=== PATIENT | male | born 1950 | race Caucasian/White ===

== ENCOUNTER 2021-10-13 17:36 | Inpatient (IN) | payer MEDICARE ==
[~2021-10-13] VITALS: Ht 172.7 cm; Wt 95.2 kg
[~2021-10-13 17:36] MED LIST: HEParin (CATH LAB) 1,000 ML IV ONE; LIDOCAINE 1% INJ 20 ML VIAL INJ ONE; NITRO DRIP 25000 MCG/D5W 250 ML IV ONE; NS IV 1000 ML 1,000 ML IV ONE
[2021-10-13] MEDS ORDERED: morphine INJ 4 MG/ML 1 ML (VIAL/SYRINGE) IV PRN (17:45)
[2021-10-13] MEDS ORDERED: ALPRAZolam 0.25 MG (XANAX) TAB PO PRN (17:45)
[2021-10-13] MEDS ORDERED: ANTACID SUSP 30 ML UDC (MYLANTA) PO PRN (17:45)
[2021-10-13] MEDS ORDERED: diphenhydrAMINE 25 MG TAB (BENADRYL) PO PRN (17:45)
[2021-10-13] MEDS ORDERED: NS IV 1000 ML 1,000 ML IV SCH (17:45)
[2021-10-13] MEDS ORDERED: diphenhydrAMINE 50 MG/ML INJ (BENADRYL) IVP PRN (17:45)
[2021-10-13] MEDS ORDERED: LACTULOSE SYRUP 10GM/15ML (ENULOSE) 30ML UDC PO PRN (17:45)
[2021-10-13] MEDS ORDERED: ACETAMINOPHEN 325 MG TABLET PO PRN ×2 (17:45→19:00)
[2021-10-13] MEDS ORDERED: polyethylene glycoL POWDER 17 GM (MIRALAX) PACK PO PRN (17:45)
[2021-10-13] MEDS ORDERED: CALCIUM CARBONATE 500 MG (TUMS) TAB.CHEW PO PRN (17:45)
[2021-10-13] MEDS ORDERED: BISACODYL 10 MG SUPP (DULCOLAX) PR PRN (17:45)
[2021-10-13] MEDS ORDERED: ONDANSETRON 4 MG (ZOFRAN) ORAL DISSOLVE TAB PO PRN (17:45)
[2021-10-13] MEDS ORDERED: ONDANSETRON 4 MG/2 ML (SDV) Z0FRAN IV PRN (17:45)
[2021-10-13] MEDS ORDERED: NALOXONE 0.4 MG/ML 1 ML (NARCAN) VIAL IV PRN (17:45)
[2021-10-13] MEDS ORDERED: MILK OF MAGNESIA 400 MG/5 ML 30 ML UDC PO PRN (17:45)
[2021-10-13] MEDS ORDERED: MELATONIN 3 MG TABLET PO PRN (17:45)
[2021-10-13] MEDS ORDERED: EPTIFIBATIDE BOLUS 20 ML IV ONE (17:52)
[2021-10-13] MEDS ORDERED: HEParin 1000 UNIT/ML (10ML VIAL) FOR BOLUS ONE (17:52)
[2021-10-13] MEDS ORDERED: fentaNYL INJ 100 MCG/2 ML AMP ONE (17:52)
[2021-10-13] MEDS ORDERED: MIDAZOLAM 5 MG/5 ML (VERSED) VIAL ONE (17:52)
[2021-10-13] MEDS ORDERED: EPTIFIBATIDE DRIP 100 ML IV ONE (18:16)
[2021-10-13] MEDS ORDERED: CLOPIDOGREL 300 MG (PLAVIX) TABLET PO ONE (18:35)
--- NOTE | 2021-10-13 18:47 | Cardiology History & Physical ---
HPI-Cardiology Cardiology H&P Date of Admission 10/13/21 Primary Care Physician Attending Physician Aruna Purcell MD, MA FACP [facility] CCDS Consulting Physician JOSE CC: Chest pain HPI 71 yo man with a week of waxing and waning chest pain: midsternal, pressure- like, mild to severe, sometimes associated with diaphoresis, some radiation to shoulders, worse with exertion, much worse today. Has had exertional shortness of breath. No swelling. No n/v/d. No palp or syncope Review of Systems-Cardiology Review of Systems Constitutional: malaise; No weight loss Eyes: No vision change Ears/Nose/Throat: No ear discharge, No nasal drainage, No recent hearing loss Respiratory: As described under HPI Cardiovascular: no symptoms reported Gastrointestinal: As described under HPI Genitourinary: No dysuria, No hematuria Musculoskeletal: No back pain, No joint pain Skin: No rash, No ulcerations Psychiatric/Neurological: No seizure, No focal weakness, No syncope Hematologic: No bleeding abnormalities QEP-Mumolh-Daqpvh Hx Patient Social History Smoking Status: Former Smoker Past Medical History PMH As described under Assessment. Family Medical History Family Medical History: Does not report fam h/o early CADD Allergies and Home Medications Allergies Coded Allergies: No Known Drug Allergies (Unverified , 10/13/21) Patient Home Medication List Home Medication List Reviewed: Yes Physical Exam-Cardiology Physical Exam Vital Signs/I&O Capillary Refill : Constitutional: AAO x 3, well-developed, well-nourished HEENT: EOMI, hearing is well preserved Neck: carotid pulses are 2 + bilaterally, with good upstrokes Respiratory: No accessory muscle use; other (fair to good air entry) Cardiovascular: regular rate-rhythm, S1 and S2, systolic murmur (2-3/6 MSM at card base) Gastrointestinal: No tender; soft; No guarding, No rebound; audible bowel sounds Extremities: No clubbing, No cyanosis, No significant edema Skin: No rash on exposed areas, No ulcerations on exposed areas Data Review Labs H/H 14.9/43.9 Plt 215k Na 138 K 4.1 Bun/Cr: 12/1.18 Trop 1.452 A/P-Cardiology Assessment/Admission Diagnosis Ac ant wall STEMI - Cath 10/13/21: 99% mid LAD -> 0% residual after Xience Spring 2.25x18 mm stent; mild to mod, diffuse plaques in other cors; LVEDP 17; 15 mmHg pressure gradient on pull back across aortic valve; LVEF 45-50%; mild anterior hypo Murmur of aortic sclerosis/stenosis H/o hypertension H/o tobacco use, quit several years ago Admission Status: Inpatient Order (span 2 midnights) Reason for Inpatient Admission: Ac STEMI Discussion and Recomendations * DAPT * BB * ARB * Statin * Monitor labs * Risk factor mod advised ARUNA PURCELL MD FACP FAC CCDS Oct 13, 2021 18:47
[2021-10-13] MEDS ORDERED: TEMAZEPAM 7.5 MG CAP (RESTORIL) PO PRN (19:00)
[2021-10-13] MEDS ORDERED: PATIENT MAY USE OWN MEDS, ALL PO SCH (19:00)
--- NOTE | 2021-10-13 19:48 | CARDIAC CATHETERIZATION ---
DATE OF SERVICE: 10/13/2021 CARDIAC CATHETERIZATION AND CORONARY INTERVENTION REPORT The patient is a 71-year-old gentleman who presented to the [facility] with chest pain that has been going on for a week. It has waxed and waned. It has not resolved completely. Today, the chest pain was much worse than yesterday and he decided to go to the emergency room. He was found to have ST elevation in the anterior leads. He was treated with beta blockers, aspirin, clopidogrel and subcutaneous enoxaparin. Chest discomfort continued. He was sent to this hospital for cardiac catheterization and coronary intervention. He provided informed consent. DESCRIPTION OF PROCEDURE: He was brought to the cardiac catheterization laboratory. The right groin was prepared and draped in the usual sterile fashion. Lidocaine 1% was used for local anesthesia. Modified Seldinger technique was used to advance a 6-Slovenian sheath in the right femoral artery. A 6-Slovenian JL4 guide catheter was used to engage the left coronary artery and to carry out diagnostic angiography. Subsequently, percutaneous intervention was carried out in the left anterior descending, and it is described below. This was followed by selective angiography of the right coronary artery using 6-Slovenian JR4 catheter and left heart catheterization with a 6-Slovenian pigtail catheter and left ventricular angiography with a 6-Slovenian pigtail catheter. The catheter was then removed, and then angiography of the right femoral artery was carried out through the sheath. Mynx was used to achieve hemostasis. PERCUTANEOUS INTERVENTION OF THE LEFT ANTERIOR DESCENDING: The left anterior descending artery was exhibiting 99% to 100% stenosis in its mid portion. Distal flow was RULA 1. We advanced a ChoICE floppy wire across the lesion and the tip was placed in the distal vessel. We carried out balloon angioplasty with a 2.0 x 20 mm balloon. This reduced the stenosis to approximately 60% and restored normal antegrade flow. The balloon was then removed, and we stented the lesion with a Xience Spring 2.25 x 18 mm stent. This was deployed at 16 atmospheres achieving a final stent lumen size of approximately 2.7 mm. The patient tolerated the procedure well. The patient received a double bolus of Integrilin during the procedure and Integrilin infusion was continued throughout. He had received therapeutic dose of enoxaparin subcutaneously in the emergency room prior to transfer. HEMODYNAMICS: Left ventricular end-diastolic pressure following coronary angiography was 17 mmHg. There was approximately 15 mmHg gradient on pullback across the aortic valve. LEFT VENTRICULAR ANGIOGRAPHY: Left ventricular angiography was carried out in the right anterior oblique projection. There is mild anteroapical hypokinesis. Left ventricular ejection fraction approximately 45% to 50%. CORONARY ANGIOGRAPHY: Left main coronary artery is free of significant disease. Left anterior descending artery has 99% mid vessel stenosis that was successfully stented with Xience Spring 2.25 x 18 mm stent. Left circumflex artery and a diagonal branch of the left anterior descending have mild plaque. Right coronary artery is large and dominant. It has diffuse moderate disease. CONCLUSIONS: 1. Coronary artery disease primarily consisting of 99% mid vessel stenosis of the left anterior descending to which successful stenting was carried out with Xience Spring 2.25 x 18 mm stent that was deployed at 16 atmospheres. The rest of the coronary vessels have diffuse mild to moderate disease. 2. Elevated left ventricular end-diastolic pressure (17 mmHg). 3. A 15 mmHg pressure gradient on pullback across the aortic valve. 4. Mild hypokinesis of the anteroapical wall with left ventricular ejection fraction of approximately 45% to 50%. DISCUSSION AND RECOMMENDATIONS: He is being hospitalized. Treatment is with dual antiplatelet regimen. Statin and a beta-juan ramon therapy is being provided. TAIWO inhibitors or angiotensin receptor blockers will be given if tolerated by blood pressure. Statins are being introduced. He has been advised to continue to refrain from tobacco use. Job ID: [id number] DocumentID: [id number] Dictated Date: 10/13/2021 18:40:47 [employer] Specialist Date: 10/13/2021 19:47:58 Dictated By: MAICOL MADRID MD, MA, FACP, FACC,
--- NOTE | 2021-10-13 19:51 | Consultation ---
HPI History of Present Illness: HPI/Chief Complaint Chief complaint: STEMI transfer from [facility] ER History of present illness: This is a 71-year-old white male clinic patient of Abby Cordon who has a history of SVT but lost to follow-up for cardiology evaluation who presented to the ER with worsening chest pain for the last 1 week and patient was found to have ST elevation on EKG and elevated troponin of 1.4 [facility] ER along with a new cardiac murmur so due to the fact of hospital diversion status I was able to move around ICU patients in order to transfer him over to cardiac Planner per Dr. Purcell to perform cardiac ca theterization in order to prevent catastrophic loss of myocardium. He has a previous smoker quit 10 years ago. His only home medication was losartan 100 mg daily. His girlfriend of 11 years is at the bedside. Source: patient Exam Limitations: no limitations Date Seen 10/13/21 Attending Physician Deepali Abdi DO PCP Referring Physician Date of Admission Oct 13, 2021 at 18:00 Home Medications & Allergies Home Medications Reviewed patient Home Medication Reconciliation performed by pharmacy medication reconciliations live truck technician and/or nursing. Patients Allergies have been reviewed. Allergies Allergies Coded Allergies No Known Drug Allergies (Unverified10/13/21) Past Sofpbto-Rvrolo-Wxrsrv Hx Past Med/Social Hx: Reviewed Nursing Past Med/Soc Hx, Reviewed and Corrections made Patient Social History Marrital Status: cohabiting Employed/Student: retired Alcohol Use: Denies Use Smoking Status: Former Smoker Past Medical History Cardiac: Hypertension Review of Systems Constitutional: see HPI, malaise, weakness EENTM: no symptoms reported Respiratory: dyspnea on exertion Cardiovascular: chest pain Gastrointestinal: no symptoms reported Genitourinary: no symptoms reported Musculoskeletal: no symptoms reported Skin: no symptoms reported Psychiatric/Neurological: No Symptoms Reported All Other Systems Reviewed Negative Unless Noted: Yes Physical Exam Physical Exam Vital Signs Vital Signs - First Documented 10/13/21 10/13/21 10/13/21 19:04 19:15 20:00 Temp 36.0 Pulse 63 Resp 29 B/P (MAP) 125/85 Pulse Ox 95 O2 Delivery Room Air Capillary Refill : Height, Weight, BMI Height: '" Weight: lbs. oz. kg; BMI Method: General Appearance: WD/WN, Anxious, Chronically ill, Mild Distress Eyes: Bilateral Eye Normal Inspection, Bilateral Eye PERRL HEENT: PERRL/EOMI, Normal ENT Inspection, Pharynx Normal Neck: Full Range of Motion, Normal Inspection, Non Tender, Supple, Carotid Bruit Respiratory: Chest Non Tender, Lungs Clear, Normal Breath Sounds, No Accessory Muscle Use, No Respiratory Distress Cardiovascular: Regular Rate, Rhythm, No Edema, No Gallop, No JVD, Normal Peripheral Pulses, Systolic Murmur Gastrointestinal: Normal Bowel Sounds, No Organomegaly, No Pulsatile Mass, Non Tender, Soft Back: Normal Inspection, No CVA Tenderness, No Vertebral Tenderness Extremity: Normal Capillary Refill, Normal Inspection, Normal Range of Motion, Non Tender, No Calf Tenderness, No Pedal Edema Neurologic/Psychiatric: Alert, Oriented x3, No Motor/Sensory Deficits, Normal Mood/Affect Skin: Normal Color, Warm/Dry Lymphatic: No Adenopathy Results Results/Procedures Labs Laboratory Tests 10/14/21 04:20 Patient resulted labs reviewed. Assessment/Plan Assessment and Plan Assess & Plan/Chief Complaint Assessment: STEMI in need to have emergent cardiac catheterization Hypertension History of SVT lost to follow-up for cardiology evaluation Cardiac murmur Former smoker quit 10 years ago Plan: Cardiac catheterization Transfer to [facility] Diagnosis/Problems Diagnosis/Problems (1) Acute ST elevation myocardial infarction (STEMI) DEEPALI ABDI DO Oct 13, 2021 19:51
--- NOTE | 2021-10-13 19:52 | Tele-ICU Consult ---
History of Present Illness History of Present Illness Date Seen by Provider: Oct 13, 2021 Time Seen by Provider: 19:50 History of Present Illness 71 yo M with SOB, CP, had ant wall DC, stented in mid LAD, started on DPT PMH aortic stenosis?, HTN Allergies and Home Medications Allergies Coded Allergies: No Known Drug Allergies (Unverified , 10/13/21) Past Medical/Social/Family Hx Patient Social History Smoking Status: Former Smoker Review of Systems Constitutional: see HPI EENTM: see HPI Respiratory: see HPI Cardiovascular: see HPI Gastrointestinal: see HPI Genitourinary: see HPI Musculoskeletal: see HPI Skin: see HPI Psychiatric/Neurological: See HPI Focused Exam Height, Weight, BMI Height: '" Weight: lbs. oz. kg; BMI Method: Exam Exam Patient acknowledged, consented, and participated in this virtual visit which was conducted using real time audio/video Height & Weight Height: '" Weight: lbs. oz. kg; BMI Method: General Appearance: No Apparent Distress Respiratory: Lungs Clear Cardiovascular: Regular Rate, Rhythm Gastrointestinal: normal bowel sounds, non tender Extremity: No Pedal Edema, Pedal Edema Assessment/Plan Assessment/Plan STEMI continue BB, TAIWO, statin, DPT Critical Care: Critically Ill Patient CAMILA ELLIS MD Oct 13, 2021 19:52
[2021-10-13] MEDS ORDERED: RT-ALBUTEROL SULF 2.5 MG/3 ML PRE-MIX VIAL INH PRN (20:30)
[2021-10-13] MEDS: SENNOSIDES 8.6 MG (SENOKOT) TAB PO SCH (21:56)
[2021-10-13] MEDS: inSUlin ASPART (NovoLOG) 1 UNIT/0.01 ML (CHARGE PER UNIT) SC SCH (21:56)
[2021-10-13] MEDS: DOCUSATE SODIUM 100 MG (COLACE) CAP PO SCH (21:56)
[2021-10-13] MEDS: meTOprolol TARTRATE 25 MG (LOPRESSOR) TABLET PO SCH (22:02)
[2021-10-13] MEDS: NS IV 1000 ML 1,000 ML IV SCH (22:03)
[2021-10-14 04:43] LABS: BASOPHILS # (AUTO) 0.1 10^3/uL (0.0-0.1); BASOPHILS % (AUTO) 1 % (0-10); EOSINOPHILS # (AUTO) 0.1 10^3/uL (0.0-0.3); EOSINOPHILS % (AUTO) 1 % (0-10); HEMATOCRIT 40 % (40-54); HEMOGLOBIN 13.6 g/dL (13.3-17.7); LYMPHOCYTES # (AUTO) 2.6 10^3/uL (1.0-4.0); LYMPHOCYTES % (AUTO) 23 % (12-44); MEAN CORPUSCULAR HEMOGLOBIN 30 pg (25-34); MEAN CORPUSCULAR HGB CONC 34 g/dL (32-36); MEAN CORPUSCULAR VOLUME 90 fL (80-99); MEAN PLATELET VOLUME 11.1 fL (9.0-12.2); MONOCYTES # (AUTO) 0.9 10^3/uL (0.0-1.0); MONOCYTES % (AUTO) 8 % (0-12); NEUTROPHILS # (AUTO) 7.5 10^3/uL (1.8-7.8); NEUTROPHILS % (AUTO) 67 % (42-75); PLATELET COUNT 209 10^3/uL (130-400); WHITE BLOOD COUNT 11.2 10^3/uL (4.3-11.0)
[2021-10-14 05:01] LABS: ALBUMIN 3.8 GM/DL (3.2-4.5); POTASSIUM 4.2 MMOL/L (3.6-5.0)
[2021-10-14 05:02] LABS: CALCIUM 8.6 MG/DL (8.5-10.1)
[2021-10-14 05:04] LABS: TOTAL PROTEIN 6.5 GM/DL (6.4-8.2)
[2021-10-14 05:05] LABS: BILIRUBIN,TOTAL 0.5 MG/DL (0.1-1.0)
[2021-10-14 05:07] LABS: CREATININE SERUM 1.1 MG/DL (0.60-1.30); PHOSPHORUS 3.4 MG/DL (2.3-4.7)
[2021-10-14 05:10] LABS: MAGNESIUM 2.4 MG/DL (1.6-2.4)
[2021-10-14] MEDS: inSUlin ASPART (NovoLOG) 1 UNIT/0.01 ML (CHARGE PER UNIT) SC SCH (05:52)
[2021-10-14] MEDS ORDERED: MAGNESIUM 1 GM/100 ML IVPB 100 ML IV SCH (06:00)
[2021-10-14] MEDS ORDERED: POTASSIUM CL 10MEQ/50ML IVPB 50 ML IV SCH (06:00)
[2021-10-14] MEDS ORDERED: KCL 20 MEQ TAB (K-DUR) PO SCH (06:00)
[2021-10-14] MEDS ORDERED: FLU QUAD HIGH DOSE 240 MCG/0.7 ML 2021-22 (FLUZONE) IM ONE (07:00)
--- NOTE | 2021-10-14 08:10 | Progress Note - Cardiology ---
Cardiology SOAP Progress Note Objective: I&O/Vital Signs 10/13/21 10/13/21 10/14/21 10/14/21 22:00 23:00 00:00 00:00 Pulse 56 60 58 Resp 21 22 18 B/P (MAP) 124/79 127/81 128/77 Pulse Ox 93 94 95 94 O2 Delivery Room Air Room Air Room Air Room Air 10/14/21 10/14/21 10/14/21 10/14/21 01:00 01:00 02:00 03:00 Pulse 58 61 58 55 Resp 20 19 20 B/P (MAP) 122/90 114/80 125/83 Pulse Ox 94 96 95 O2 Delivery Room Air Room Air Room Air 10/14/21 10/14/21 10/14/21 10/14/21 04:00 04:00 05:00 06:00 Pulse 54 62 60 Resp 20 21 18 B/P (MAP) 126/68 122/80 121/75 Pulse Ox 96 94 94 95 O2 Delivery Room Air Room Air Room Air Room Air 10/14/21 10/14/21 10/14/21 10/14/21 07:00 07:00 07:00 08:00 Pulse 64 72 59 75 Resp 13 15 B/P (MAP) 124/80 124/79 Pulse Ox 96 97 O2 Delivery Room Air Room Air 10/14/21 08:26 Temp 37.2 10/13/21 23:59 Intake Total 300 ml Balance 300 ml Constitutional: AAO x 3, well-developed, well-nourished Respiratory: No accessory muscle use; other (fair to good air entry) Cardiovascular: regular rate-rhythm, S1 and S2, systolic murmur (2-3/6 MSM at card base) Gastrointestional: No tender; soft; No guarding, No rebound; audible bowel sounds Extremities: No clubbing, No cyanosis, No significant edema Skin: No rash on exposed areas, No ulcerations on exposed areas Results/Procedures: Labs Laboratory Tests 10/13/21 20:16: Glucometer 116H 10/14/21 04:20: White Blood Count 11.2H, Red Blood Count 4.51, Hemoglobin 13.6, Hematocrit 40, Mean Corpuscular Volume 90, Mean Corpuscular Hemoglobin 30, Mean Corpuscular Hemoglobin Concent 34, Red Cell Distribution Width 12.9, Platelet Count 209, Mean Platelet Volume 11.1, Immature Granulocyte % (Auto) 0, Neutrophils (%) (Auto) 67, Lymphocytes (%) (Auto) 23, Monocytes (%) (Auto) 8, Eosinophils (%) (Auto) 1, Basophils (%) (Auto) 1, Neutrophils # (Auto) 7.5, Lymphocytes # (Auto) 2.6, Monocytes # (Auto) 0.9, Eosinophils # (Auto) 0.1, Basophils # (Auto) 0.1, Immature Granulocyte # (Auto) 0.0, Sodium Level 135, Potassium Level 4.2, Chloride Level 104, Carbon Dioxide Level 20L, Anion Gap 11, Blood Urea Nitrogen 13, Creatinine 1.10, Estimat Glomerular Filtration Rate 72, BUN/Creatinine Ratio 12, Glucose Level 137H, Calcium Level 8.6, Corrected Calcium 8.8, Phosphorus Level 3.4, Magnesium Level 2.4, Total Bilirubin 0.5, Aspartate Amino Transf (AST/SGOT) 146H, Alanine Aminotransferase (ALT/SGPT) 43, Alkaline Phosphatase 54, Total Protein 6.5, Albumin 3.8, Triglycerides Level 187H, Cholesterol Level 157, LDL Cholesterol Direct 111, VLDL Cholesterol 37, HDL Cholesterol 31L A/P: Assessment: Ac ant wall STEMI - Cath 10/13/21: 99% mid LAD -> 0% residual after Xience Spring 2.25x18 mm stent; mild to mod, diffuse plaques in other cors; LVEDP 17; 15 mmHg pressure gradient on pull back across aortic valve; LVEF 45-50%; mild anterior hypo Murmur of aortic sclerosis/stenosis H/o hypertension H/o tobacco use, quit several years ago Plan: * DAPT * BB * ARB * Statin * Monitor labs * Risk factor mod advised TAYLOR AGEE Oct 14, 2021 08:10
[2021-10-14] MEDS ORDERED: ENOXAPARIN 100 MG/1 ML (LOVENOX) SYR SC SCH (09:00)
[2021-10-14] MEDS: ASPIRIN E.C. 81 MG (ECOTRIN) TAB PO SCH (09:00)
[2021-10-14] MEDS: meTOprolol TARTRATE 25 MG (LOPRESSOR) TABLET PO SCH ×2 (09:00→20:51)
[2021-10-14] MEDS: DOCUSATE SODIUM 100 MG (COLACE) CAP PO SCH ×2 (09:00→20:50)
[2021-10-14] MEDS ORDERED: ASPIRIN 81 MG CHEW (CHILDREN'S ASA) PO SCH (09:00)
[2021-10-14] MEDS: CLOPIDOGREL 75 MG (PLAVIX) TABLET PO SCH (09:00)
[2021-10-14] MEDS ORDERED: CLOPIDOGREL 75 MG (PLAVIX) TABLET PO SCH (09:00)
[2021-10-14] MEDS: LOSARTAN 25 MG (COZAAR) TAB PO SCH (09:00)
--- NOTE | 2021-10-14 09:27 | Progress Note - Cardiology ---
Cardiology SOAP Progress Note Objective: I&O/Vital Signs 10/15/21 10/15/21 10/15/21 10/15/21 00:11 01:00 04:01 07:00 Temp 36.2 36.3 Pulse 68 53 70 55 Resp 18 20 B/P (MAP) 133/84 138/85 Pulse Ox 95 98 O2 Delivery Room Air Room Air 10/15/21 10/15/21 10/15/21 07:36 08:00 08:00 Temp 35.9 Pulse 82 Resp 20 B/P (MAP) 126/79 Pulse Ox 94 97 95 O2 Delivery Room Air Room Air Room Air 10/15/21 00:00 Intake Total 1100 ml Output Total 525 ml Balance 575 ml Side: right Condition: DP/PT pulses palpable, extremity w/d/p Bruising: mild bruising Constitutional: AAO x 3, well-developed, well-nourished Respiratory: No accessory muscle use; other (fair to good air entry) Cardiovascular: regular rate-rhythm, S1 and S2, systolic murmur (2-3/6 MSM at card base) Gastrointestional: No tender; soft; No guarding, No rebound; audible bowel sounds Extremities: No clubbing, No cyanosis, No significant edema Skin: No rash on exposed areas, No ulcerations on exposed areas Results/Procedures: Labs Laboratory Tests 10/14/21 15:45: Glucometer 89 10/15/21 05:40: White Blood Count 11.6H, Red Blood Count 5.13, Hemoglobin 15.3, Hematocrit 46, Mean Corpuscular Volume 89, Mean Corpuscular Hemoglobin 30, Mean Corpuscular Hemoglobin Concent 34, Red Cell Distribution Width 13.0, Platelet Count 226, Mean Platelet Volume 11.3, Immature Granulocyte % (Auto) 0, Neutrophils (%) (Auto) 64, Lymphocytes (%) (Auto) 23, Monocytes (%) (Auto) 11, Eosinophils (%) (Auto) 2, Basophils (%) (Auto) 1, Neutrophils # (Auto) 7.4, Lymphocytes # (Auto) 2.7, Monocytes # (Auto) 1.3H, Eosinophils # (Auto) 0.2, Basophils # (Auto) 0.1, Immature Granulocyte # (Auto) 0.0, Sodium Level 137, Potassium Level 4.1, Chloride Level 103, Carbon Dioxide Level 19L, Anion Gap 15H, Blood Urea Nitrogen 15, Creatinine 1.02, Estimat Glomerular Filtration Rate 79, BUN/Creatinine Ratio 15, Glucose Level 90, Calcium Level 9.7, Corrected Calcium 9.4, Total Bilirubin 0.9, Aspartate Amino Transf (AST/SGOT) 72H, Alanine Aminotransferase (ALT/SGPT) 40, Alkaline Phosphatase 57, Total Protein 8.0, Albumin 4.4 A/P: Assessment: Ac ant wall STEMI - Cath 10/13/21: 99% mid LAD -> 0% residual after Xience Spring 2.25x18 mm stent; mild to mod, diffuse plaques in other cors; LVEDP 17; 15 mmHg pressure gradient on pull back across aortic valve; LVEF 45-50%; mild anterior hypo Murmur of aortic sclerosis/stenosis H/o hypertension H/o tobacco use, quit several years ago Plan: * Continue DAPT, BB, ARB, Statin * Increase ambulation * Monitor labs * Risk factor mod advised TAYLOR AGEE Oct 14, 2021 09:27
[2021-10-14] MEDS: ENOXAPARIN 40 MG/0.4 ML (LOVENOX) SYR SC SCH (09:30)
[2021-10-14] MEDS: NS IV 1000 ML 1,000 ML IV SCH (10:02)
[2021-10-14] MEDS: SENNOSIDES 8.6 MG (SENOKOT) TAB PO SCH ×2 (10:03→20:50)
[2021-10-14] MEDS ORDERED: ASPI-1238 PO (10:12)
[2021-10-14] MEDS ORDERED: LOSA100T57 PO (10:12)
[2021-10-14] MEDS ORDERED: IBUP-2473 PO (10:12)
[2021-10-14] MEDS ORDERED: OMEP20TA33 PO (10:12)
[2021-10-14] MEDS ORDERED: ASCO-262 PO (10:12)
[2021-10-14] MEDS ORDERED: FISH1CAP15 PO (10:12)
--- NOTE | 2021-10-14 12:07 | Progress Note - Cardiology ---
Cardiology SOAP Progress Note Subjective: No leg or groin discomfort No cp or palp or syncope or shortness of breath No n/v/d Objective: I&O/Vital Signs 10/14/21 10/14/21 10/14/21 10/14/21 01:00 01:00 02:00 03:00 Pulse 58 61 58 55 Resp 20 19 20 B/P (MAP) 122/90 114/80 125/83 Pulse Ox 94 96 95 O2 Delivery Room Air Room Air Room Air 10/14/21 10/14/21 10/14/21 10/14/21 04:00 04:00 05:00 06:00 Pulse 54 62 60 Resp 20 21 18 B/P (MAP) 126/68 122/80 121/75 Pulse Ox 96 94 94 95 O2 Delivery Room Air Room Air Room Air Room Air 10/14/21 10/14/21 10/14/21 10/14/21 07:00 07:00 07:00 08:00 Pulse 64 72 59 Resp 13 B/P (MAP) 124/80 Pulse Ox 96 95 O2 Delivery Room Air Room Air 10/14/21 10/14/21 10/14/21 08:00 08:26 09:00 Temp 37.2 Pulse 75 74 Resp 15 18 B/P (MAP) 124/79 135/42 Pulse Ox 97 96 O2 Delivery Room Air Room Air 10/14/21 00:00 Intake Total 300 ml Balance 300 ml Side: right Condition: DP/PT pulses palpable, extremity w/d/p Bruising: mild bruising Constitutional: AAO x 3, well-developed, well-nourished Respiratory: No accessory muscle use; other (fair to good air entry) Cardiovascular: regular rate-rhythm, S1 and S2, systolic murmur (2-3/6 MSM at card base) Gastrointestional: No tender; soft; No guarding, No rebound; audible bowel sounds Extremities: No clubbing, No cyanosis, No significant edema Skin: No rash on exposed areas, No ulcerations on exposed areas Results/Procedures: Labs Laboratory Tests 10/13/21 20:16: Glucometer 116H 10/14/21 04:20: White Blood Count 11.2H, Red Blood Count 4.51, Hemoglobin 13.6, Hematocrit 40, Mean Corpuscular Volume 90, Mean Corpuscular Hemoglobin 30, Mean Corpuscular Hemoglobin Concent 34, Red Cell Distribution Width 12.9, Platelet Count 209, Mean Platelet Volume 11.1, Immature Granulocyte % (Auto) 0, Neutrophils (%) (Auto) 67, Lymphocytes (%) (Auto) 23, Monocytes (%) (Auto) 8, Eosinophils (%) (Auto) 1, Basophils (%) (Auto) 1, Neutrophils # (Auto) 7.5, Lymphocytes # (Auto) 2.6, Monocytes # (Auto) 0.9, Eosinophils # (Auto) 0.1, Basophils # (Auto) 0.1, Immature Granulocyte # (Auto) 0.0, Sodium Level 135, Potassium Level 4.2, Chloride Level 104, Carbon Dioxide Level 20L, Anion Gap 11, Blood Urea Nitrogen 13, Creatinine 1.10, Estimat Glomerular Filtration Rate 72, BUN/Creatinine Ratio 12, Glucose Level 137H, Calcium Level 8.6, Corrected Calcium 8.8, Phosphorus Level 3.4, Magnesium Level 2.4, Total Bilirubin 0.5, Aspartate Amino Transf (AST/SGOT) 146H, Alanine Aminotransferase (ALT/SGPT) 43, Alkaline Phosphatase 54, Total Protein 6.5, Albumin 3.8, Triglycerides Level 187H, Cholesterol Level 157, LDL Cholesterol Direct 111, VLDL Cholesterol 37, HDL Cholesterol 31L 10/14/21 10:47: Glucometer 102 Laboratory Tests 10/14/21 04:20 A/P: Assessment: Ac ant wall STEMI - Cath 10/13/21: 99% mid LAD -> 0% residual after Xience Spring 2.25x18 mm stent; mild to mod, diffuse plaques in other cors; LVEDP 17; 15 mmHg pressure gradient on pull back across aortic valve; LVEF 45-50%; mild anterior hypo Murmur of aortic sclerosis/stenosis H/o hypertension H/o tobacco use, quit several years ago Plan: * Continue DAPT, BB, ARB, Statin * Increase ambulation * Monitor labs * Risk factor mod advised MAICOL MADRID MD FACP FAC CCDS Oct 14, 2021 12:07
--- NOTE | 2021-10-14 12:32 | Progress Note ---
CARMINA UMANZOR 10/14/21 1231: Subjective Date Seen by a Provider: Oct 14, 2021 Time Seen by a Provider: 09:45 Subjective/Events-last exam Farshad is a 71yo M with a past medical history of SVT, bladder, cancer, hypertension. He came to [place] ER yesterday for worsening chest pain that was aggravated by activity. He had ST elevations, an elevated troponin, and new heart murmur. He was transferred to [facility] [address] and had a heart catheterization done and a stent placed in LAD. He then was transferred to ICU to be monitored. Patient was awake and watching television when he was interviewed. Patient reports feeling fine. His only concern is his back is sore which he says is normal for him. Has has been ambulating to go to the bathroom and had breakfast this morning. Patient states he would like to leave the hospital today if possible. Review of Systems General: No Chills, No Fatigue HEENT: No Head Aches Pulmonary: No Dyspnea, No Cough Cardiovascular: No: Chest Pain, Palpitations Gastrointestinal: No: Nausea, Vomiting, Abdominal Pain, Diarrhea, Constipation Genitourinary: No Dysuria, No Incontinence Musculoskeletal: back pain (Back is sore) Neurological: No: Weakness, Change in speech, Confusion Objective Exam Last Set of Vital Signs Vital Signs Date Time Temp Pulse Resp B/P (MAP) Pulse Ox O2 Delivery O2 Flow Rate FiO2 10/14/21 09:00 74 18 135/42 96 Room Air 10/14/21 08:26 37.2 Capillary Refill : Less Than 3 Seconds I&O Intake and Output 10/14/21 00:00 Intake Total 300 ml Balance 300 ml Intake Oral 300 ml Daily Weight Change No General: Alert, Oriented X3, Cooperative HEENT: Atraumatic Neck: Supple Lungs: Clear to Auscultation, Normal Air Movement Heart: Other (Systolic rumble heard) Abdomen: Normal Bowel Sounds Extremities: No Clubbing, No Cyanosis, No Edema Skin: No Rashes Neuro: Normal Speech, Normal Tone Results Lab Laboratory Tests 10/13/21 20:16: Glucometer 116H 10/14/21 04:20: White Blood Count 11.2H, Red Blood Count 4.51, Hemoglobin 13.6, Hematocrit 40, Mean Corpuscular Volume 90, Mean Corpuscular Hemoglobin 30, Mean Corpuscular Hemoglobin Concent 34, Red Cell Distribution Width 12.9, Platelet Count 209, Mean Platelet Volume 11.1, Immature Granulocyte % (Auto) 0, Neutrophils (%) (Auto) 67, Lymphocytes (%) (Auto) 23, Monocytes (%) (Auto) 8, Eosinophils (%) (Auto) 1, Basophils (%) (Auto) 1, Neutrophils # (Auto) 7.5, Lymphocytes # (Auto) 2.6, Monocytes # (Auto) 0.9, Eosinophils # (Auto) 0.1, Basophils # (Auto) 0.1, Immature Granulocyte # (Auto) 0.0, Sodium Level 135, Potassium Level 4.2, Chloride Level 104, Carbon Dioxide Level 20L, Anion Gap 11, Blood Urea Nitrogen 13, Creatinine 1.10, Estimat Glomerular Filtration Rate 72, BUN/Creatinine Ratio 12, Glucose Level 137H, Calcium Level 8.6, Corrected Calcium 8.8, Phosphorus Level 3.4, Magnesium Level 2.4, Total Bilirubin 0.5, Aspartate Amino Transf (AST/SGOT) 146H, Alanine Aminotransferase (ALT/SGPT) 43, Alkaline Phosphatase 54, Total Protein 6.5, Albumin 3.8, Triglycerides Level 187H, Cholesterol Level 157, LDL Cholesterol Direct 111, VLDL Cholesterol 37, HDL Cholesterol 31L 10/14/21 10:47: Glucometer 102 Assessment/Plan Assessment/Plan Assess & Plan/Chief Complaint 1) STEMI Started dual antiplatelet therapy with Clopidogrel and Aspirin Started Metoprolol Started Atorvastatin Aspart given yesterday due to concern for hyperglycemia, will be stopped today due to glucose levels being WNL Counseled on smoking cessation 2) Myocardial infarction acute Patient needs to be monitored for 48 hours post catheterization Needs to have groin assessed for any swelling, color change, or new masses at the site of the catheterization Patient can continue to be monitored on the medical-surgical floor and can be transferred there 3) Hypertension Home medication of Losartan was restarted 4) SVT Condition is stable 5) New murmur His systolic murmur makes us concerned for mitral regurgitation Waiting for echocardiography results is being consulted by cardiology 6) DVT prophylaxis Started on Enoxaparin 7) Influenza prevention Was given the Influenza vaccine 8) Elevated AST Most likely due to catheterization procedure Will monitor labs to ensure value returns to WNL Diagnosis/Problems Diagnosis/Problems (1) SVT (supraventricular tachycardia) (2) Hypertension (3) Elevated AST (SGOT) (4) Acute ST elevation myocardial infarction (STEMI) (5) Myocardial infarction acute (6) Systolic murmur (7) DVT prophylaxis DEEPALI HICKS DO 10/15/21 0534: Subjective Subjective/Events-last exam Pt is doing a lot better today Stent placed yesterday and pt is tolerating everything well Statin initiated at [address] Purcell's expertise Review of Systems General: Fatigue Objective Exam General: Alert, Oriented X3, Cooperative, No Acute Distress Lungs: Clear to Auscultation, Normal Air Movement Heart: Regular Rate, Normal S1, Normal S2, No Murmurs Psych/Mental Status: Mental Status NL, Mood NL Assessment/Plan Assessment/Plan Assess & Plan/Chief Complaint Patient doing well Discharge plan for tomorrow Echo Supervisory-Addendum Brief Verification & Attestation Participated in pt care: history, MDM, physical Personally performed: exam, history, MDM, supervision of care Care discussed with: Medical Student Procedures: n/a Results interpretation: Verified all documentation Verification and Attestation of Medical Student E/M Service A medical student performed and documented this service in my presence. I re viewed and verified all information documented by the medical student and made modifications to such information, when appropriate. I personally performed the physical exam and medical decision making. Deepali Hicks, Oct 15, 2021,05:33 CARMINA UMANZOR Oct 14, 2021 12:31 DEEPALI HICKS DO Oct 15, 2021 05:34
[2021-10-15 06:08] LABS: BASOPHILS # (AUTO) 0.1 10^3/uL (0.0-0.1); BASOPHILS % (AUTO) 1 % (0-10); EOSINOPHILS # (AUTO) 0.2 10^3/uL (0.0-0.3); EOSINOPHILS % (AUTO) 2 % (0-10); HEMATOCRIT 46 % (40-54); HEMOGLOBIN 15.3 g/dL (13.3-17.7); LYMPHOCYTES # (AUTO) 2.7 10^3/uL (1.0-4.0); LYMPHOCYTES % (AUTO) 23 % (12-44); MEAN CORPUSCULAR HEMOGLOBIN 30 pg (25-34); MEAN CORPUSCULAR HGB CONC 34 g/dL (32-36); MEAN CORPUSCULAR VOLUME 89 fL (80-99); MEAN PLATELET VOLUME 11.3 fL (9.0-12.2); MONOCYTES # (AUTO) 1.3 10^3/uL (0.0-1.0); MONOCYTES % (AUTO) 11 % (0-12); NEUTROPHILS # (AUTO) 7.4 10^3/uL (1.8-7.8); NEUTROPHILS % (AUTO) 64 % (42-75); PLATELET COUNT 226 10^3/uL (130-400); WHITE BLOOD COUNT 11.6 10^3/uL (4.3-11.0)
[2021-10-15 06:28] LABS: ALBUMIN 4.4 GM/DL (3.2-4.5); BILIRUBIN,TOTAL 0.9 MG/DL (0.1-1.0); CALCIUM 9.7 MG/DL (8.5-10.1); CREATININE SERUM 1.02 MG/DL (0.60-1.30); POTASSIUM 4.1 MMOL/L (3.6-5.0)
[2021-10-15] MEDS: ASPIRIN E.C. 81 MG (ECOTRIN) TAB PO SCH (08:33)
[2021-10-15] MEDS: DOCUSATE SODIUM 100 MG (COLACE) CAP PO SCH (08:33)
[2021-10-15] MEDS: SENNOSIDES 8.6 MG (SENOKOT) TAB PO SCH (08:33)
[2021-10-15] MEDS: LOSARTAN 25 MG (COZAAR) TAB PO SCH (08:33)
[2021-10-15] MEDS: CLOPIDOGREL 75 MG (PLAVIX) TABLET PO SCH (08:33)
[2021-10-15] MEDS: ENOXAPARIN 40 MG/0.4 ML (LOVENOX) SYR SC SCH (08:33)
[2021-10-15] MEDS ORDERED: CLOP75TA28 PO (10:57)
[2021-10-15] MEDS ORDERED: MTP25TSR PO (10:57)
[2021-10-15] MEDS ORDERED: LOSA25TA41 PO (10:57)
[2021-10-15] MEDS ORDERED: ATOR80TA76 PO (10:58)
--- NOTE | 2021-10-15 11:10 | Discharge Summary ---
Diagnosis/Chief Complaint Date of Admission Oct 13, 2021 at 18:00 Date of Discharge Discharge Date: Oct 15, 2021 Discharge Diagnosis 1) STEMI Started dual antiplatelet therapy with Clopidogrel and Aspirin Started Metoprolol Started Atorvastatin Aspart given yesterday due to concern for hyperglycemia, will be stopped today due to glucose levels being WNL Counseled on smoking cessation 2) Myocardial infarction acute Patient needs to be monitored for 48 hours post catheterization Needs to have groin assessed for any swelling, color change, or new masses at the site of the catheterization Patient can continue to be monitored on the medical-surgical floor and can be transferred there 3) Hypertension Home medication of Losartan was restarted 4) SVT Condition is stable 5) New murmur His systolic murmur makes us concerned for mitral regurgitation Waiting for echocardiography results is being consulted by cardiology 6) DVT prophylaxis Started on Enoxaparin 7) Influenza prevention Was given the Influenza vaccine 8) Elevated AST Most likely due to catheterization procedure Will monitor labs to ensure value returns to WNL Discharge Summary Discharge Physical Examination Allergies: Coded Allergies: No Known Drug Allergies (Unverified , 10/13/21) Vitals & I&Os Vital Signs Date Time Temp Pulse Resp B/P (MAP) Pulse Ox O2 Delivery O2 Flow Rate FiO2 10/15/21 13:51 36.3 78 18 124/74 97 Room Air General Appearance: Alert, Oriented X3, Cooperative Respiratory: Clear to Auscultation Cardiovascular: Regular Rate Psych/Mental Status: Mental Status NL Hospital Course Was the Problem List Reviewed?: Yes Hospital course: Farshad is a 71yo M with a past medical history of SVT, bladder cancer, and hypertension. He came to [place] ER on 10/13/21 for worsening chest pain that was aggravated by activity. He had ST elevations, an elevated troponin, and new heart murmur. He was transferred to [facility] and had a heart catheterization done and a stent placed in LAD. His EF was found to be 45-50 during the catheterization. He then was transferred to ICU to be monitored. On 10/14/21 he was moved to the medical-surgical floor due to being stable, ambulating on his own, and having a well healing wound from his catheterization. An echocardiogram was done during his stay and showed EF 55-60 with apical hypokinesis. He was diagnosed with a grade 1 diastolic dysfunction. His wound from his catheterization was monitored for over 24 hours and did not have bleeding, bruising, or pain. Patient felt that he was back to his baseline at discharge. He will be following up with cardiology two weeks after discharge to discuss if he should resume work and regular activity. Patient was instructed to relax for the next two weeks until his follow up with cardiology. Patient discharged with Metoprolol, Clopidogrel, Aspirin, and Atorvastatin. CARMINA UMANZOR Oct 15, 2021 12:25 Labs (last 24 hrs) Laboratory Tests 10/13/21 20:16: Glucometer 116H 10/14/21 04:20: White Blood Count 11.2H, Red Blood Count 4.51, Hemoglobin 13.6, Hematocrit 40, Mean Corpuscular Volume 90, Mean Corpuscular Hemoglobin 30, Mean Corpuscular Hemoglobin Concent 34, Red Cell Distribution Width 12.9, Platelet Count 209, Mean Platelet Volume 11.1, Immature Granulocyte % (Auto) 0, Neutrophils (%) (Auto) 67, Lymphocytes (%) (Auto) 23, Monocytes (%) (Auto) 8, Eosinophils (%) (Auto) 1, Basophils (%) (Auto) 1, Neutrophils # (Auto) 7.5, Lymphocytes # (Auto) 2.6, Monocytes # (Auto) 0.9, Eosinophils # (Auto) 0.1, Basophils # (Auto) 0.1, Immature Granulocyte # (Auto) 0.0, Sodium Level 135, Potassium Level 4.2, Chloride Level 104, Carbon Dioxide Level 20L, Anion Gap 11, Blood Urea Nitrogen 13, Creatinine 1.10, Estimat Glomerular Filtration Rate 72, BUN/Creatinine Ratio 12, Glucose Level 137H, Calcium Level 8.6, Corrected Calcium 8.8, Phosphorus Level 3.4, Magnesium Level 2.4, Total Bilirubin 0.5, Aspartate Amino Transf (AST/SGOT) 146H, Alanine Aminotransferase (ALT/SGPT) 43, Alkaline Phosphatase 54, Total Protein 6.5, Albumin 3.8, Triglycerides Level 187H, Cholesterol Level 157, LDL Cholesterol Direct 111, VLDL Cholesterol 37, HDL Cholesterol 31L 10/14/21 10:47: Glucometer 102 10/14/21 15:45: Glucometer 89 10/15/21 05:40: White Blood Count 11.6H, Red Blood Count 5.13, Hemoglobin 15.3, Hematocrit 46, Mean Corpuscular Volume 89, Mean Corpuscular Hemoglobin 30, Mean Corpuscular Hemoglobin Concent 34, Red Cell Distribution Width 13.0, Platelet Count 226, Mean Platelet Volume 11.3, Immature Granulocyte % (Auto) 0, Neutrophils (%) (Auto) 64, Lymphocytes (%) (Auto) 23, Monocytes (%) (Auto) 11, Eosinophils (%) (Auto) 2, Basophils (%) (Auto) 1, Neutrophils # (Auto) 7.4, Lymphocytes # (Auto) 2.7, Monocytes # (Auto) 1.3H, Eosinophils # (Auto) 0.2, Basophils # (Auto) 0.1, Immature Granulocyte # (Auto) 0.0, Sodium Level 137, Potassium Level 4.1, Chloride Level 103, Carbon Dioxide Level 19L, Anion Gap 15H, Blood Urea Nitrogen 15, Creatinine 1.02, Estimat Glomerular Filtration Rate 79, BUN/Creatinine Ratio 15, Glucose Level 90, Calcium Level 9.7, Corrected Calcium 9.4, Total Bilirubin 0.9, Aspartate Amino Transf (AST/SGOT) 72H, Alanine Aminotransferase (ALT/SGPT) 40, Alkaline Phosphatase 57, Total Protein 8.0, Albumin 4.4 Pending Labs Laboratory Tests 10/13/21 20:16: Glucometer 116 10/14/21 04:20: White Blood Count 11.2, Red Blood Count 4.51, Hemoglobin 13.6, Hematocrit 40, Mean Corpuscular Volume 90, Mean Corpuscular Hemoglobin 30, Mean Corpuscular Hemoglobin Concent 34, Red Cell Distribution Width 12.9, Platelet Count 209, Mean Platelet Volume 11.1, Immature Granulocyte % (Auto) 0, Neutrophils (%) (Auto) 67, Lymphocytes (%) (Auto) 23, Monocytes (%) (Auto) 8, Eosinophils (%) (Auto) 1, Basophils (%) (Auto) 1, Neutrophils # (Auto) 7.5, Lymphocytes # (Auto) 2.6, Monocytes # (Auto) 0.9, Eosinophils # (Auto) 0.1, Basophils # (Auto) 0.1, Immature Granulocyte # (Auto) 0.0, Sodium Level 135, Potassium Level 4.2, Chlori de Level 104, Carbon Dioxide Level 20, Anion Gap 11, Blood Urea Nitrogen 13, Creatinine 1.10, Estimat Glomerular Filtration Rate 72, BUN/Creatinine Ratio 12, Glucose Level 137, Calcium Level 8.6, Corrected Calcium 8.8, Phosphorus Level 3.4, Magnesium Level 2.4, Total Bilirubin 0.5, Aspartate Amino Transf (AST/SGOT) 146, Alanine Aminotransferase (ALT/SGPT) 43, Alkaline Phosphatase 54, Total Protein 6.5, Albumin 3.8, Triglycerides Level 187, Cholesterol Level 157, LDL Cholesterol Direct 111, VLDL Cholesterol 37, HDL Cholesterol 31 10/14/21 10:47: Glucometer 102 10/14/21 15:45: Glucometer 89 10/15/21 05:40: White Blood Count 11.6, Red Blood Count 5.13, Hemoglobin 15.3, Hematocrit 46, Mean Corpuscular Volume 89, Mean Corpuscular Hemoglobin 30, Mean Corpuscular Hemoglobin Concent 34, Red Cell Distribution Width 13.0, Platelet Count 226, Mean Platelet Volume 11.3, Immature Granulocyte % (Auto) 0, Neutrophils (%) (Auto) 64, Lymphocytes (%) (Auto) 23, Monocytes (%) (Auto) 11, Eosinophils (%) (Auto) 2, Basophils (%) (Auto) 1, Neutrophils # (Auto) 7.4, Lymphocytes # (Auto) 2.7, Monocytes # (Auto) 1.3, Eosinophils # (Auto) 0.2, Basophils # (Auto) 0.1, Immature Granulocyte # (Auto) 0.0, Sodium Level 137, Potassium Level 4.1, Chloride Level 103, Carbon Dioxide Level 19, Anion Gap 15, Blood Urea Nitrogen 15, Creatinine 1.02, Estimat Glomerular Filtration Rate 79, BUN/Creatinine Ratio 15, Glucose Level 90, Calcium Level 9.7, Corrected Calcium 9.4, Total Bilirubin 0.9, Aspartate Amino Transf (AST/SGOT) 72, Alanine Aminotransferase (ALT/SGPT) 40, Alkaline Phosphatase 57, Total Protein 8.0, Albumin 4.4 Discharge Home Medications: Active Scripts Active Atorvastatin Calcium 80 Mg Tablet 80 Mg PO HS Losartan Potassium 25 Mg Tablet 25 Mg PO DAILY Metoprolol Succinate 25 Mg Tab.er.24h 25 Mg PO DAILY Clopidogrel (Clopidogrel Bisulfate) 75 Mg Tablet 75 Mg PO DAILY Reported Prilosec Otc (Omeprazole Magnesium) 20 Mg Tablet.dr 20 Mg PO DAILY Aspirin EC (Aspirin) 81 Mg Tablet.dr 81 Mg PO DAILY Vitamin C (Ascorbate Calcium) 500 Mg Tablet 500 Mg PO DAILY Fish Oil 1,200 mg Fish Oil (Fish Oil/Dha/Epa) 1 Each Capsule 1 Each PO TID Instructions to patient/family Please see electronic discharge instructions given to patient. Diagnosis/Problems Diagnosis/Problems (1) Acute ST elevation myocardial infarction (STEMI) KHUSHBOO HICKS DO Oct 15, 2021 11:10
--- NOTE | 2021-10-15 12:25 | Progress Note ---
CARMINA UMANZOR 10/15/21 1225: Progress Note Hospital course: Farshad is a 71yo M with a past medical history of SVT, bladder cancer, and hypertension. He came to [place] ER on 10/13/21 for worsening chest pain that was aggravated by activity. He had ST elevations, an elevated troponin, and new heart murmur. He was transferred to [facility] [address] and had a heart catheterization done and a stent placed in LAD. His EF was found to be 45-50 during the catheterization. He then was transferred to ICU to be monitored. On 10/14/21 he was moved to the medical-surgical floor due to being stable, ambulating on his own, and having a well healing wound from his catheterization. An echocardiogram was done during his stay and showed EF 55-60 with apical hypokinesis. He was diagnosed with a grade 1 diastolic dysfunction. His wound from his catheterization was monitored for over 24 hours and did not have bleeding, bruising, or pain. Patient felt that he was back to his baseline at discharge. He will be following up with cardiology two weeks after discharge to discuss if he should resume work and regular activity. Patient was instructed to relax for the next two weeks until his follow up with cardiology. Patient discharged with Metoprolol, Clopidogrel, Aspirin, and Atorvastatin. DEEPALI HICKS DO 10/16/21 0520: Supervisory-Addendum Brief Verification & Attestation Participated in pt care: history, MDM, physical Personally performed: exam, history, MDM, supervision of care Care discussed with: Medical Student Procedures: n/a Results interpretation: Verified all documentation Verification and Attestation of Medical Student E/M Service A medical student performed and documented this service in my presence. I revi ewed and verified all information documented by the medical student and made modifications to such information, when appropriate. I personally performed the physical exam and medical decision making. Deepali Hicks Oct 16, 2021,05:20 CARMINA UMANZOR Oct 15, 2021 12:25 DEEPALI HICKS DO Oct 16, 2021 05:20
[2021-10-15 13:51] VITALS: BP 124/74
== END 2021-10-15 14:00 | disposition home or self-care (01) | DRG 247 ==
LOC: ICU 18:00 → 4TH 10-14 15:05
PROVIDERS: ADMIT Internal Medicine; ATTEND Internal Medicine
PROC: 027034Z Dilation of Coronary Artery, One Artery with Drug-eluting Intraluminal Device, Percutaneous Approach (ICD-10-PCS; principal; 2021-10-13)
PROC: 4A023N7 Measurement of Cardiac Sampling and Pressure, Left Heart, Percutaneous Approach (ICD-10-PCS; 2021-10-13)
PROC: B2111ZZ Fluoroscopy of Multiple Coronary Arteries using Low Osmolar Contrast (ICD-10-PCS; 2021-10-13)
PROC: B2151ZZ Fluoroscopy of Left Heart using Low Osmolar Contrast (ICD-10-PCS; 2021-10-13)
DX: I21.09 ST elevation (STEMI) myocardial infarction involving other coronary artery of anterior wall (principal); I47.1 Supraventricular tachycardia; I35.0 Nonrheumatic aortic (valve) stenosis; I10 Essential (primary) hypertension; Z87.891 Personal history of nicotine dependence; R01.1 Cardiac murmur, unspecified; Z23 Encounter for immunization
CPT/HCPCS: 36415; 80053; 80061; 82947; 83735; 84100; 85025; 93005; 93306; 93458; 94760

== ENCOUNTER → 2022-12-02 | Outpatient (CLI) | payer MEDICARE ==
[~2022-12-02] MED LIST changes: +ASCO-262 PO; +ASPI-1238 PO; +ATOR80TA76 PO; +CLOP75TA28 PO; +FISH1CAP15 PO; -HEParin (CATH LAB) 1,000 ML IV ONE; +IBUP-2473 PO; -LIDOCAINE 1% INJ 20 ML VIAL INJ ONE; +LOSA100T57 PO; +LOSA25TA41 PO; +MTP25TSR PO; -NITRO DRIP 25000 MCG/D5W 250 ML IV ONE; -NS IV 1000 ML 1,000 ML IV ONE; +OMEP20TA33 PO
== END ==
LOC: CARD 08:51
PROVIDERS: ATTEND Internal Medicine Cardiovascular Disease
DX: I35.2 Nonrheumatic aortic (valve) stenosis with insufficiency (principal); I51.7 Cardiomegaly
CPT/HCPCS: 93306

== ENCOUNTER → 2022-12-14 | Outpatient (CLI) | payer MEDICARE ==
[~2022-12-14] VITALS: Ht 172 cm; Wt 84.0 kg
[~2022-12-14] MED LIST changes: +REGADENOSON 0.4 MG/5 ML SYR (LEXISCAN) IV ONE
[2022-12-14] MEDS: CATHETER FLUSH 10 ML SYR IVP PRN ×2 (12:08→13:17)
[2022-12-14 13:17] VITALS: BP 165/92
== END ==
LOC: CARD 12:30
PROVIDERS: ATTEND Nurse Practitioner Family
DX: I35.0 Nonrheumatic aortic (valve) stenosis (principal); I25.10 Atherosclerotic heart disease of native coronary artery without angina pectoris
CPT/HCPCS: 78452; 93017; A9502